=== PATIENT | female | born 1995 | race Caucasian/White ===

== ENCOUNTER 2017-05-20 23:47 | Emergency (ER) | payer OTHER ==
[~2017-05-20] VITALS: Ht 157.5 cm; Wt 115.0 kg
[2017-05-20 23:49] VITALS: BP 133/78
[2017-05-21 00:42] LABS: CONTROL LINE UCG INT CTR LINE PRESENT
[2017-05-21] MEDS ORDERED: BACT800T5 PO (01:06)
[2017-05-21] MEDS ORDERED: LIDOCAINE 1% MDV 20ML VIAL As Ordered ONE (01:12)
[2017-05-21] MEDS ORDERED: BACTRIM 160MG/800MG DS TAB PO ONE (01:15)
[2017-05-21] MEDS ORDERED: PERCOCET 5MG/325MG TAB PO ONE (01:15)
[2017-05-21] MEDS ORDERED: LIDOCAINE 1% MDV 20ML VIAL IM ONE (01:15)
[2017-05-21] MEDS ORDERED: ONDANSETRON 4 MG TAB (S0181) PO ONE (01:15)
[2017-05-21] MEDS ORDERED: cefTRIAXone SOD 1 GM VIAL (J0696) IM ONE (01:15)
[2017-05-21] MEDS ORDERED: TRAM50TA2 PO (01:18)
== END 2017-05-21 01:57 | disposition home or self-care (01) ==
LOC: M ED 05-21 00:58
DX: N10 Acute pyelonephritis (principal); Z87.442 Personal history of urinary calculi
CPT/HCPCS: 81001; 84703; 87088; 87186; 96372; 99283; J0696

== ENCOUNTER 2017-05-22 19:21 | Observation (INO) | payer OTHER ==
[~2017-05-22] VITALS: Ht 157.5 cm; Wt 52.3 kg
[~2017-05-22 19:21] MED LIST: BACT800T5 PO; TRAM50TA2 PO
[2017-05-22] MEDS ORDERED: NS 1,000 ML IV SCH (21:34)
[2017-05-22] MEDS ORDERED: NS 1,000 ML IV ONE ×2 (21:45→22:15)
[2017-05-22 21:58] LABS: BASO # 0.1 10^3/uL (0.0-0.2); BASO % 0.7 % (0.0-1.0); EOS # 0.1 10^3/uL (0.0-0.50); IMMATURE GRANULOCYTE % 0.4 % (0-0); LYMPH # 2.3 10^3/uL (1.5-6.5); LYMPH % 22.5 % (24.0-44.0); MEAN CORPUSCULAR HGB CONC 33.3 g/dl (32.0-36.5); MONO # 0.7 10^3/uL (0.0-0.8); MONO % 6.6 % (0.0-5.0); NEUTROPHILS % 68.8 % (36.0-66.0); PLATELET COUNT, AUTOMATED 257 10^3/uL (150-450); RED CELL DISTRIBUTION WIDTH 12.1 % (11.5-14.5); WHITE BLOOD COUNT 10.2 10^3/uL (4.0-10.0)
[2017-05-22 22:53] LABS: CONTROL LINE HCG INT CTR LINE PRESENT
[2017-05-22 23:16] LABS: BLOOD UREA NITROGEN 9 MG/DL (7-18); GLUCOSE, FASTING 77 MG/DL (70-105)
[2017-05-22 23:17] LABS: ALKALINE PHOSPHATASE 53 U/L (45-117); ALT/SGPT 18 U/L (12-78); AST/SGOT 18 U/L (15-37); BILIRUBIN,DIRECT 0.2 MG/DL (0.0-0.2); BILIRUBIN,TOTAL 0.7 MG/DL (0.2-1.0); CALCIUM LEVEL 8.1 MG/DL (8.5-10.1); CREATININE FOR GFR 0.78 MG/DL (0.55-1.02); GLOMERULAR FILTRATION RATE > 60.0 (>60); TOTAL PROTEIN 6.6 GM/DL (6.4-8.2)
[2017-05-22 23:18] LABS: ALBUMIN 3.7 GM/DL (3.2-5.2); ALBUMIN/GLOBULIN RATIO 1.28 (1.00-1.93)
[2017-05-22 23:19] LABS: ANION GAP 8 MEQ/L (8-16); CARBON DIOXIDE LEVEL 23 MEQ/L (21-32); CHLORIDE LEVEL 106 MEQ/L (98-107); POTASSIUM SERUM 4.1 MEQ/L (3.5-5.1); SODIUM LEVEL 137 MEQ/L (136-145)
[2017-05-22 23:35] LABS: METHADONE URINE NEGATIVE (NEGATIVE)
--- NOTE | 2017-05-22 23:50 | REPUSA ---
CT of the abdomen and pelvis without contrast Clinical statement: left-sided pain. Technique: Multiple axial CT images were obtained from the base of the lungs to the floor of the pelv is utilizing 5 mm axial slices without administration of contrast. Coronal and sagittal reconstructio ns were also obtained. No comparison is available. Findings: Chest: The visualized lung bases are clear. Abdomen: The kidneys are normal in size bilaterally. There is no evidence of hydronephrosis. A 1 mm n onobstructing stone is seen in the left kidney. The liver, spleen, pancreas, gallbladder and adrenal glands are unremarkable. The aorta demonstrates normal caliber and contour. There is no abdominal lym phadenopathy or ascites. Pelvis: The bowel is unremarkable, with no obstructive or inflammatory changes. The appendix is tom l. The urinary bladder is within normal limits. There is no pelvic lymphadenopathy or ascites. The ot her pelvic structures appear unremarkable. Bones: There are no suspicious osseous abnormalities seen. Impression: No evidence of hydronephrosis. Nonobstructing left renal nephrolithiasis. No obstructive or inflammatory bowel changes.
[2017-05-23] MEDS ORDERED: TRAM50TA2 PO (00:50)
[2017-05-23] MEDS ORDERED: BACT800T5 PO (00:50)
[2017-05-23] MEDS: cefTRIAXone SOD 1 GM in D5W 50 ML IV SCH (01:00)
--- NOTE | 2017-05-23 01:36 | REP ---
Clinical: Altered mental status . Comparison: None . Findings: The mediastinum and cardiac silhouette are stable and within normal limits for portable technique. The lung nance are clear without acute consolidation, effusion, or pneumothorax. Skeletal structures are intact. Impression: No acute cardiopulmonary process appreciated. Signed by Mina Zacarias MD 05/23/2017 01:27 A
[2017-05-23] MEDS ORDERED: ONDANSETRON 4MG/2ML VIAL (J2405) IV PRN (01:45)
[2017-05-23] MEDS ORDERED: NS 1,000 ML IV SCH (01:45)
--- NOTE | 2017-05-23 01:50 | HPEPDOC ---
General Date of Admission May 22, 2017 at 19:22 Attending Physician: OTTO ESCOBAR MD Chief Complaint The patient is a 21-year-old female admitted with a reason for visit of Pyelonephritis. Source: Patient Exam Limitations: No limitations History of Present Illness 21-year-old female who recently moved to the area from [place] a few months ago with a past medical history significant for recurrent urinary tract infections and kidney stones presented to the ER with a chief complaint of left-sided flank pain. Of note, the patient was seen in the ER on 05/21/17 for complaints of the same, and she was discharged home on by mouth Bactrim for pyelonephritis. At this time, the patient returned to the ER for complaints of persistent left-sided flank pain with associated nausea and vomiting. The patient also notes subjective fevers at home. She also has complaints of suprapubic tenderness and dysuria. She reports that she has had about 10 episodes of urinary tract infection/pyelonephritis treated in [place] over the last 1 year, which present similarly to this. She states that the symptoms resolve following antibiotic treatment, and notes that her last infection was about 4 months ago. She denies any other acute complaints. In the ER, the patient did have a pelvic exam done by the ER physician (Dr. Rodriguez ) who also sent serology for chlamydia and gonorrhea. At this time, the hospitalist service has been called to admit this patient for pyelonephritis- which has failed outpatient antibiotic therapy. Home Medications Scheduled Trimethoprim/Sulfamethoxazole (Bactrim Ds 800-160 mg) 1 Tab Tab, 1 TAB PO BID, ( Reported) Scheduled PRN Tramadol HCl (Tramadol HCl) 50 Mg Tab, 50 MG PO TID PRN for PAIN, (Reported) Allergies Coded Allergies: No Known Allergies (Unverified , 05/20/17) Past Medical History Medical History As noted above. Surgical History [place] Tooth extraction Family History Significant Family History: No pertinent family hx Social History Drugs: denies Review of Symptoms Other systems 10 point review of systems negative unless otherwise specified in HPI. Physical Examination General Exam: Positive: Alert, Cooperative, No Acute Distress ENT Exam: Positive: Atraumatic, Mucous membr. moist/pink Neck Exam: Negative: JVD Chest Exam: Positive: Clear to auscultation, Normal air movement Heart Exam: Positive: Rate Normal, Normal S1, Normal S2 Abdomen Exam: Positive: Soft, Other (Mild tenderness to deep palpation in the suprapubic area, left flank area.) Extremity Exam: Negative: Tenderness, Swelling Psych Exam: Positive: Oriented x 3 Vital Signs Vital Signs Date Time Temp Pulse Resp B/P (MAP) Pulse Ox O2 Delivery O2 Flow Rate FiO2 05/23/17 00:53 98.0 18 99 Room Air 05/22/17 23:51 72 Laboratory Data Labs 24H Laboratory Tests 2 05/22/17 21:40: Immature Granulocyte % (Auto) 0.4H, White Blood Count 10.2H, Red Blood Count 5.31, Hemoglobin 15.4, Hematocrit 46.2, Mean Corpuscular Volume 87.0, Mean Corpuscular Hemoglobin 29.0, Mean Corpuscular Hemoglobin Concent 33.3, Red Cell Distribution Width 12.1, Platelet Count 257, Neutrophils (%) (Auto) 68.8H, Lymphocytes (%) (Auto) 22.5L, Monocytes (%) (Auto) 6.6H, Eosinophils (%) (Auto) 1.0, Basophils (%) (Auto) 0.7, Neutrophils # (Auto) 7.0, Lymphocytes # (Auto) 2.3, Monocytes # (Auto) 0.7, Eosinophils # (Auto) 0.1, Basophils # (Auto) 0.1, Immature Granulocyte # (Auto) 0.0, Nucleated Red Blood Cells % (auto) 0.0, Urine Appearance CLOUDYH, Urine Color YELLOW, Urine pH 6.0, Urine Specific [place]far[place] 1.012, Urine Protein NEGATIVE, Urine Glucose (UA) NEGATIVE, Urine Ketones TRACEH, Urine Urobilinogen 0.2, Urine Bilirubin NEGATIVE, Urine Leukocyte Esterase 3+H, Urine Blood NEGATIVE, Urine Nitrite NEGATIVE, Urine WBC (Auto) 53H, Urine RBC (Auto) 6H, Urine Hyaline Casts (Auto) 0, Urine Bacteria ( Auto) 1+H, Urine Squamous Epithelial Cells 34, Urine Mucus (Auto) SMALL, Urine Sperm (Auto) , Urine Amphetamines Screen NEGATIVE, Urine Benzodiazepines Screen NEGATIVE, Urine Opiates Screen NEGATIVE, Urine Methadone Screen NEGATIVE, Urine Barbiturates Screen NEGATIVE, Urine Phencyclidine Screen NEGATIVE, Urine Cocaine Metabolite Screen NEGATIVE, Urine Cannabinoids Screen NEGATIVE 05/22/17 22:08: Anion Gap 8, Glomerular Filtration Rate > 60.0, Calcium Level 8.1L, Aspartate Amino Transf (AST/SGOT) 18, Alanine Aminotransferase (ALT/SGPT) 18, Alkaline Phosphatase 53, Total Bilirubin 0.7, Direct Bilirubin 0.2, Total Creatine Kinase 175, Creatine Kinase MB 1.2, Creatine Kinase MB Relative Index 0.68, Troponin I < 0.02, Total Protein 6.6, Albumin 3.7, Albumin/Globulin Ratio 1.28, Lipase 84, Thyroid Stimulating Hormone (TSH) 1.380, Human Chorionic Gonadotropin , Qual NEGATIVE, Salicylates Level < 1.7L, Acetaminophen Level < 2.0L, Ethyl Alcohol Level < 0.003 05/22/17 22:51: Lactic Acid Level 1.1 05/23/17 00:45: CBC/BMP Laboratory Tests 05/22/17 21:40 Red Blood Count 5.31, Mean Corpuscular Volume 87.0, Mean Corpuscular Hemoglobin 29.0, Mean Corpuscular Hemoglobin Concent 33.3, Red Cell Distribution Width 12.1 , Neutrophils (%) (Auto) 68.8 H, Lymphocytes (%) (Auto) 22.5 L, Monocytes (%) ( Auto) 6.6 H, Eosinophils (%) (Auto) 1.0, Basophils (%) (Auto) 0.7, Neutrophils # (Auto) 7.0, Lymphocytes # (Auto) 2.3, Monocytes # (Auto) 0.7, Eosinophils # ( Auto) 0.1, Basophils # (Auto) 0.1 05/22/17 22:08 Microbiology Microbiology 05/22/17 Blood Culture, Received Pending 05/22/17 Blood Culture, Received Pending 05/23/17 Wet Prep - Final, Complete 05/22/17 Urine Culture, Received Pending Plan / VTE VTE Prophylaxis Ordered?: Yes Plan Plan Suprapubic Tenderness and Flank Pain 2/2 UTI/Pyelonephritis CT of the Abd/Pel notable for a 1 mm nonobstructing stone in the left kidney UA notable for +LE, multiple WBC's WBC of 10.2K noted Blood Cultures, Urine Cultures pending Patient has remained afebrile here, with a lactic acid wnl We will empirically start the patient on Rocephin IVF Hydration Antiemetics ordered Wet Prep noted, G-C serology ordered I did discuss the patient needing to establish with a PCP here, and to discuss the possible benefit of antimicrobial prophylaxis given the frequency of her UTI 's. DVT Prophylaxis Lovenox SC The patient will be admitted under the service of Dr. Escobar, who will begin to follow the patient on 05/23/17 at 7 AM. LUCRECIA HARDY MD May 23, 2017 01:50
[2017-05-23 03:00] VITALS: BP 112/61
[2017-05-23] MEDS: ACETAMINOPHEN TAB 650MG DOSE (2X325MG) PO PRN ×2 (03:10→16:18)
[2017-05-23 08:00] VITALS: BP 109/69
[2017-05-23 08:11] LABS: MEAN CORPUSCULAR HEMOGLOBIN 28.9 pg (27.0-33.0); MEAN CORPUSCULAR HGB CONC 32.9 g/dl (32.0-36.5); MEAN CORPUSCULAR VOLUME 87.9 fl (80.0-96.0); RED CELL DISTRIBUTION WIDTH 11.9 % (11.5-14.5); WHITE BLOOD COUNT 6.8 10^3/uL (4.0-10.0)
--- NOTE | 2017-05-23 08:28 | ECGEPIP ---
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
[2017-05-23 08:34] LABS: ANION GAP 6 MEQ/L (8-16); BLOOD UREA NITROGEN 9 MG/DL (7-18); CALCIUM LEVEL 8.2 MG/DL (8.5-10.1); CARBON DIOXIDE LEVEL 25 MEQ/L (21-32); CHLORIDE LEVEL 108 MEQ/L (98-107); CREATININE FOR GFR 0.65 MG/DL (0.55-1.02); GLOMERULAR FILTRATION RATE > 60.0 (>60); GLUCOSE, FASTING 77 MG/DL (70-105); POTASSIUM SERUM 4.6 MEQ/L (3.5-5.1); SODIUM LEVEL 139 MEQ/L (136-145)
[2017-05-23] MEDS ORDERED: ENOXAPARIN 30 MG/0.3 ML SYR (J1650) SC SCH (09:00)
[2017-05-23] MEDS ORDERED: AZITHROMYCIN 250 MG TAB PO ONE (12:30)
[2017-05-23] MEDS ORDERED: SLF 3 ML SYR IV PRN (14:15)
--- NOTE | 2017-05-23 15:07 | CR ---
DATE OF CONSULTATION: 05/23/2017 HISTORY: 21-year-old G0 female several days of left-sided to midline pelvic pain that has been intermittent. She had some low back pain as well and several episodes of nausea and vomiting. She was seen in the emergency room on 05/21/2017 and diagnosed with a urinary tract infection and subsequently, she was treated with Bactrim as an outpatient. She subjectively had fevers. She has pain with urination as well. She re-presented to the emergency room with worsening pain on the date of admission. Chlamydia culture of the cervix did return positive on her most recent emergency room visit. PAST MEDICAL HISTORY: Noncontributory. PAST SURGICAL HISTORY: [place] tooth extraction. ALLERGIES: No known drug allergies. MEDICATIONS: Bactrim DS. FAMILY HISTORY: Noncontributory. PHYSICAL EXAMINATION: Blood pressure 109/69, pulse 69, temperature 98.0, respiratory rate 16. She is in no apparent distress. Head and neck exam normal. Lungs clear. Heart regular rate and rhythm. Abdomen nontender, soft, nondistended. No CVA tenderness. Pelvic exam reveals no cervical motion tenderness. Normal physiologic discharge. No adnexal tenderness. No masses palpable. Extremities nontender. LABS: White blood count 6.8, hemoglobin 30.1 mg/dL. ASSESSMENT: 21-year-old G0 female with suprapubic pain as well as dysuria admitted with possible pyelonephritis. The patient likely has cervicitis related to chlamydia but doubt pelvic inflammatory disease. Chlamydial infection can cause dysuria and suprapubic discomfort without involving the upper genital tract. Would treat with Zithromax 1 gram by mouth times one. Recommend treatment for the patient's as well. The patient should be re-tested in about 6 weeks to insure that the chlamydia is resolved. Agree with plan to treat for possible pyelonephritis as the patient did have a urine culture positive for E coli. Once clinically improved she can be sent home. JOSE R
[2017-05-23 16:00] VITALS: BP 110/65
[2017-05-23] MEDS: PERCOCET 5MG/325MG TAB PO PRN (18:21)
[2017-05-23 21:00] VITALS: BP 109/66
[2017-05-23] MEDS: SLF 3 ML SYR IV SCH (21:06)
[2017-05-24] VITALS: BP 109/74
[2017-05-24] MEDS: PERCOCET 5MG/325MG TAB PO PRN (00:19)
[2017-05-24] MEDS: cefTRIAXone SOD 1 GM in D5W 50 ML IV SCH (00:37)
[2017-05-24] MEDS: SLF 3 ML SYR IV SCH (00:38)
[2017-05-24 07:19] LABS: MEAN CORPUSCULAR HEMOGLOBIN 29.2 pg (27.0-33.0); MEAN CORPUSCULAR HGB CONC 34.1 g/dl (32.0-36.5); MEAN CORPUSCULAR VOLUME 85.6 fl (80.0-96.0); RED CELL DISTRIBUTION WIDTH 12.1 % (11.5-14.5); WHITE BLOOD COUNT 6.9 10^3/uL (4.0-10.0)
[2017-05-24 07:38] LABS: ALBUMIN 3.6 GM/DL (3.2-5.2); ALBUMIN/GLOBULIN RATIO 1.16 (1.00-1.93); ALKALINE PHOSPHATASE 48 U/L (45-117); ALT/SGPT 17 U/L (12-78); ANION GAP 9 MEQ/L (8-16); AST/SGOT 13 U/L (15-37); BILIRUBIN,TOTAL 0.5 MG/DL (0.2-1.0); BLOOD UREA NITROGEN 9 MG/DL (7-18); CALCIUM LEVEL 8.4 MG/DL (8.5-10.1); CARBON DIOXIDE LEVEL 24 MEQ/L (21-32); CHLORIDE LEVEL 105 MEQ/L (98-107); CREATININE FOR GFR 0.71 MG/DL (0.55-1.02); GLOMERULAR FILTRATION RATE > 60.0 (>60); GLUCOSE, FASTING 89 MG/DL (70-105); MAGNESIUM LEVEL 1.8 MG/DL (1.8-2.4); POTASSIUM SERUM 3.6 MEQ/L (3.5-5.1); SODIUM LEVEL 138 MEQ/L (136-145); TOTAL PROTEIN 6.7 GM/DL (6.4-8.2)
[2017-05-24] MEDS ORDERED: CIPR500T3 PO (07:38)
[2017-05-24 08:00] VITALS: BP 108/62
--- NOTE | 2017-05-25 10:53 | DSES ---
DATE OF ADMISSION: 05/22/2017 DATE OF DISCHARGE: 05/24/2017 SUBJECTIVE: The patient tells me she is doing better. Her pain is resolving. She denies any vaginal discharge, fevers, chills, nausea, vomiting, or diarrhea. OBJECTIVE: VITAL SIGNS: Temperature 98.3, pulse 63, respiratory rate 18, blood pressure (BP) 108/62, oxygen saturation 97% on room air. GENERAL: She is a young pleasant female, laying flat in bed, in no acute distress. HEENT: Cranial nerves II-XII are grossly intact. She has moist mucous membranes. No elevation in central venous pressure (CVP). CARDIOVASCULAR EXAM: S1, S2, regular. RESPIRATORY EXAM: Is clear. ABDOMINAL EXAM: Is benign. There is no tenderness. No costovertebral angle (CVA) tenderness. Negative as it was yesterday. EXTREMITIES: No clubbing, cyanosis, or edema. LABORATORY STUDIES: WBC 6.9, hemoglobin 14, platelet count 256. Chemistry panel: Sodium 138, potassium 3.6, chloride 105, bicarbonate 24, BUN 9, creatinine 0.7. Lipase and TSH within normal limits, and hCG is negative. Toxicology was negative. Urine was suggestive of a urinary tract infection. Serology with 53 WBCs, 3+ leukocyte esterase, 1+ bacteria. Serology was positive for Chlamydia trachomatis. Syphilis RPR was negative. HIV screening was negative. Neisseria gonorrhea was negative. Microbiology: Blood cultures were negative for 24 hours. Urine culture is negative during this stay, but on 05/22/2017, prior to admission, she was positive for E. coli, fairly susceptible. Wet prep was unrevealing. IMAGING: The patient had a CT scan of the abdomen and pelvis, which revealed no evidenced of hydronephrosis, nonobstructing left nephrolithiasis, no obstructive or inflammatory bowel changes. She had a chest x-ray that revealed no acute cardiopulmonary process. ASSESSMENT AND PLAN: This is a 21-year-old female who was admitted with E. coli pyelonephritis, found to have chlamydia infection. PROBLEMS: 1. Pyelonephritis. Patient has been empirically on ceftriaxone, and she has improved with therapy with reduction in her costovertebral angle (CVA) and her left inguinal tenderness. At this time, I will transition to ciprofloxacin for her to be a on a 14-day course for pyelonephritis. She has had numerous infections in the past, although she is new to the area and we have no previous documentation. Should she have recurrent infections, could consider outpatient referral to urology. 2. Chlamydia. Patient was found to have chlamydia. She was seen in consultation by Dr. Andrew. [facility] has been notified as has the patient. I have treated the patient with 1 gram of azithromycin. Recommended that she not have intercourse for 1 week and have repeat testing in 6 weeks and that her also should be treated as soon as possible. She should avoid any intercourse with him until he is post treatment for [address] Andrew does not feel the patient had any evidence of pelvic inflammatory disease. It was felt that she likely had cervicitis related to chlamydia as well. The patient at this time is afebrile and is medically stable for discharge home. Her activity and diet are as prior to admission. She is to followup with her primary care provider (PCP) within 7 days. Return to the emergency room (ER) if symptoms worsen.
== END 2017-05-24 08:50 | disposition home or self-care (01) ==
LOC: M ED 19:21 → M ED INP 19:22 → M PED 05-23 02:45
PROVIDERS: ADMIT Internal Medicine; ATTEND Internal Medicine
DX: N10 Acute pyelonephritis (principal); A70 Chlamydia psittaci infections; B96.20 Unspecified Escherichia coli [E. coli] as the cause of diseases classified elsewhere; Z79.899 Other long term (current) drug therapy
CPT/HCPCS: 36415; 71010; 74176; 80048; 80053; 80076; 80307; 81001; 82550; 82553; 83605; 83690; 83735; 84443; 84703; 85025; 85027; 86780; 87040; 87086; 87210; 87389; 87491; 87591; 93005; 93041; 94760; 96361; 96372; 96374; 96375; 96376; 99285; G0480; J0696; J1650; J2405

== ENCOUNTER 2017-09-06 22:19 | Emergency (ER) | payer OTHER ==
[2017-09-06] MEDS: AUGMENTIN 875 MG TAB PO (23:45)
== END 2017-09-07 00:05 | disposition home or self-care (01) ==
LOC: M ED 22:19
DX: S01.81XA Laceration without foreign body of other part of head, initial encounter (principal); W54.0XXA Bitten by dog, initial encounter; Y92.099 Unspecified place in other non-institutional residence as the place of occurrence of the external cause; Y93.89 Activity, other specified
CPT/HCPCS: 12011

== ENCOUNTER → 2017-10-05 | Outpatient (REF) | payer OTHER ==
[2017-10-05 13:44] LABS: INR 1.01; PROTHROMBIN TIME 13.4 SECONDS (12.4-14.5)
[2017-10-05 13:45] LABS: PARTIAL THROMBOPLASTIN TIME 30.7 SECONDS (26.8-37.9)
[2017-10-05 14:01] LABS: IMMUNOGLOBULIN G 1010 MG/DL (681-1648); IMMUNOGLOBULIN M 87.9 MG/DL (40-230)
== END ==
LOC: M LAB REF 13:08
DX: R23.3 Spontaneous ecchymoses (principal)

== ENCOUNTER 2017-10-06 15:32 | Emergency (ER) | payer OTHER | END 2017-10-06 16:59 | disposition home or self-care (01) | LOC: M ED 15:32 | DX: S80.11XA Contusion of right lower leg, initial encounter (principal); V00.318A Other snowboard accident, initial encounter; Y92.838 Other recreation area as the place of occurrence of the external cause | CPT/HCPCS: 73590 ==

== ENCOUNTER → 2017-10-16 | Outpatient (REF) | payer OTHER | LOC: M LAB REF 16:45 | DX: R23.3 Spontaneous ecchymoses (principal) | CPT/HCPCS: 85247 ==

== ENCOUNTER 2017-12-31 18:45 | Emergency (ER) | payer OTHER | END 2017-12-31 22:39 | disposition home or self-care (01) | LOC: M ED 18:45 | DX: N93.9 Abnormal uterine and vaginal bleeding, unspecified (principal); R10.2 Pelvic and perineal pain; Z79.899 Other long term (current) drug therapy | CPT/HCPCS: 81025 ==

== ENCOUNTER 2018-02-26 10:30 | Emergency (ER) | payer OTHER ==
[2018-02-26 11:03] LABS: HEMATOCRIT 38.9 % (36.0-47.0); HEMOGLOBIN 13.3 g/dl (12.0-15.5); MEAN CORPUSCULAR HGB CONC 34.2 g/dl (32.0-36.5); MEAN CORPUSCULAR VOLUME 84.7 fl (80.0-96.0); PLATELET COUNT, AUTOMATED 243 10^3/uL (150-450); RED BLOOD COUNT 4.59 10^6/uL (4.00-5.40); RED CELL DISTRIBUTION WIDTH 12.6 % (11.5-14.5); WHITE BLOOD COUNT 9.7 10^3/uL (4.0-10.0)
[2018-02-26 11:10] LABS: AMORPHOUS SEDIMENT RFX LARGE (NEGATIVE); KETONE, URINE AUTO RFX NEGATIVE (NEGATIVE); LEUKOCYTE ESTERASE UR AUTO RFX TRACE (NEGATIVE); MUCUS, URINE RFX SMALL (NEGATIVE); NITRITE, URINE AUTO RFX NEGATIVE (NEGATIVE); RBC, URINE AUTO RFX 0 /HPF (0-3); SPECIFIC GRAVITY UR AUTO RFX 1.013 (1.002-1.035); SQUAM EPITHELIAL CELL UR AURFX 4 /HPF (0-6); WBC, URINE AUTO RFX 0 /HPF (0-3)
[2018-02-26 11:38] LABS: HCG, SERUM QUANTITATIVE 127646 MIU/ML
== END 2018-02-26 13:31 | disposition home or self-care (01) ==
LOC: M ED 10:30
DX: O26.891 Other specified pregnancy related conditions, first trimester (principal); Z3A.08 8 weeks gestation of pregnancy; O34.81 Maternal care for other abnormalities of pelvic organs, first trimester; N83.201 Unspecified ovarian cyst, right side
CPT/HCPCS: 76801

== ENCOUNTER 2018-04-11 07:16 | Emergency (ER) | payer OTHER ==
[2018-04-11] MEDS: AUGMENTIN 875 MG TAB PO (08:30)
[2018-04-11 09:52] LABS: AMORPHOUS SEDIMENT RFX LARGE (NEGATIVE); KETONE, URINE AUTO RFX NEGATIVE (NEGATIVE); LEUKOCYTE ESTERASE UR AUTO RFX NEGATIVE (NEGATIVE); MUCUS, URINE RFX LARGE (NEGATIVE); NITRITE, URINE AUTO RFX NEGATIVE (NEGATIVE); RBC, URINE AUTO RFX 0 /HPF (0-3); SPECIFIC GRAVITY UR AUTO RFX 1.019 (1.002-1.035); SQUAM EPITHELIAL CELL UR AURFX 4 /HPF (0-6); WBC, URINE AUTO RFX 5 /HPF (0-3)
== END 2018-04-11 09:55 | disposition home or self-care (01) ==
LOC: M ED 07:16
DX: O9A.212 Injury, poisoning and certain other consequences of external causes complicating pregnancy, second trimester (principal); S60.410A Abrasion of right index finger, initial encounter; S60.412A Abrasion of right middle finger, initial encounter; W54.0XXA Bitten by dog, initial encounter; Y92.018 Other place in single-family (private) house as the place of occurrence of the external cause; Z3A.15 15 weeks gestation of pregnancy
CPT/HCPCS: 81001

== ENCOUNTER 2018-05-07 20:06 | Emergency (ER) | payer OTHER ==
[2018-05-07 19:58] LABS: KETONE, URINE AUTO RFX NEGATIVE (NEGATIVE); MUCUS, URINE RFX SMALL (NEGATIVE); NITRITE, URINE AUTO RFX NEGATIVE (NEGATIVE); RBC, URINE AUTO RFX 2 /HPF (0-3); SPECIFIC GRAVITY UR AUTO RFX 1.004 (1.002-1.035); SQUAM EPITHELIAL CELL UR AURFX 5 /HPF (0-6); WBC, URINE AUTO RFX 4 /HPF (0-3)
[2018-05-07 20:15] LABS: LEUKOCYTE ESTERASE UR AUTO RFX 1+ (NEGATIVE)
[2018-05-07] MEDS: NS 1,000 ML IV (20:46)
[2018-05-07 21:32] LABS: BASO % 0.4 % (0.0-1.0); EOS # 0.1 10^3/uL (0.0-0.50); HEMATOCRIT 36.1 % (36.0-47.0); HEMOGLOBIN 12.3 g/dl (12.0-15.5); IMMATURE GRANULOCYTE % 0.3 % (0-3.0); LYMPH # 2.5 10^3/uL (1.5-6.5); LYMPH % 22.9 % (24.0-44.0); MEAN CORPUSCULAR HEMOGLOBIN 28.9 pg (27.0-33.0); MEAN CORPUSCULAR HGB CONC 34.1 g/dl (32.0-36.5); MEAN CORPUSCULAR VOLUME 84.7 fl (80.0-96.0); MONO # 0.8 10^3/uL (0.0-0.8); MONO % 7.3 % (0.0-5.0); NEUTROPHILS # 7.4 10^3/uL (1.8-7.7); NEUTROPHILS % 68.1 % (36.0-66.0); PLATELET COUNT, AUTOMATED 230 10^3/uL (150-450); RED BLOOD COUNT 4.26 10^6/uL (4.00-5.40); RED CELL DISTRIBUTION WIDTH 12.6 % (11.5-14.5); WHITE BLOOD COUNT 10.8 10^3/uL (4.0-10.0)
[2018-05-07 21:46] LABS: ALBUMIN 2.9 GM/DL (3.2-5.2); ALBUMIN/GLOBULIN RATIO 0.81 (1.00-1.93); ALKALINE PHOSPHATASE 45 U/L (45-117); ALT/SGPT 29 U/L (12-78); ANION GAP 7 MEQ/L (8-16); AST/SGOT 17 U/L (7-37); BILIRUBIN,DIRECT < 0.1 MG/DL (0.0-0.2); BILIRUBIN,TOTAL 0.2 MG/DL (0.2-1.0); BLOOD UREA NITROGEN 9 MG/DL (7-18); CARBON DIOXIDE LEVEL 25 MEQ/L (21-32); CHLORIDE LEVEL 108 MEQ/L (98-107); CREATININE FOR GFR 0.48 MG/DL (0.55-1.30); GLOMERULAR FILTRATION RATE > 60.0 (>60); GLUCOSE, FASTING 95 MG/DL (70-100); LIPASE 114 U/L (73-393); POTASSIUM SERUM 3.6 MEQ/L (3.5-5.1); SODIUM LEVEL 140 MEQ/L (136-145); TOTAL PROTEIN 6.5 GM/DL (6.4-8.2)
[2018-05-07 21:47] LABS: LACTIC ACID SEPSIS PROTOCOL 1.1 MMOL/L (0.4-2.0)
[2018-05-08 01:26] LABS: CHLAMYDIA DNA AMPLIFICATION NEGATIVE (NEGATIVE); GC DNA AMPLIFICATION NEGATIVE (NEGATIVE)
== END 2018-05-08 00:34 | disposition home or self-care (01) ==
LOC: M ED 05-08 00:34
DX: R10.9 Unspecified abdominal pain (principal); Z87.440 Personal history of urinary (tract) infections
CPT/HCPCS: 76775

== ENCOUNTER → 2018-07-06 | Outpatient (CLI) | payer OTHER | LOC: M LDO 21:02 | DX: O9A.212 Injury, poisoning and certain other consequences of external causes complicating pregnancy, second trimester (principal); W07.XXXA Fall from chair, initial encounter; Y92.89 Other specified places as the place of occurrence of the external cause; Z3A.27 27 weeks gestation of pregnancy | CPT/HCPCS: 76815 ==

== ENCOUNTER 2018-07-15 18:53 | Outpatient (CLI) | payer OTHER | END 2018-07-15 20:45 | disposition home or self-care (01) | LOC: M LDO 18:53 | DX: O26.893 Other specified pregnancy related conditions, third trimester (principal); R10.10 Upper abdominal pain, unspecified; Z3A.28 28 weeks gestation of pregnancy | CPT/HCPCS: 59025 ==

== ENCOUNTER 2018-08-16 22:34 | Outpatient (CLI) | payer OTHER ==
[~2018-08-16] VITALS: Ht 157.5 cm; Wt 70.6 kg
[~2018-08-16 22:34] MED LIST changes: +AUGM875T28 PO; +CIPR500T3 PO; +IBUP-1022 PO; +LEVO750T13 PO; +NITR100C2; +PREN1CHW6 PO; +PREN27TA3 PO; +PROAAER10 INH; +REGL10TA6 PO; +TESS100C PO; +ZITHTAB PO; +ZOFR4TAB14 PO
[2018-08-16 22:48] VITALS: BP 147/84
[2018-08-16] MEDS ORDERED: COLA100C5 PO (22:52)
--- NOTE | 2018-08-17 00:15 | IPNPDOC ---
Text Note Date of Service The patient was seen on 08/17/18. NOTE Triage Note Annalisa is a 22yo with SIUP at approx 33wk who presents tonight for ctx. Notably, she has idiopathic polyhydramnios and was treated symptomatically 5 days ago with amniocentesis. She was seen at [facility] earlier in the day and noted to have WM 28cm and plan is for another amniocentesis at her next visit there. She was treated for possible PTL at [facility] previously also, she notes she was 1cm dilated, and she received a course of betamethasone. She was discharged when PTL did not progress. She notes ctx for the last 2 hours have been somewhat regular and occasional ctx are painful. No LOF. No vaginal bleeding. She feels excellent movement. first bp mild range and normotensive on repeat, afebrile General: WDWN, lying comfortably in bed Abdomen: gravid, non-tender to palpation Extremities: no edema of BLE SCE: 1/thick/high FHRT: reactive, bl 120, +accels, -decels, mod wu Knowles: irregular ctx Assessment: Annalisa is a 22yo with SIUP at approx 33wk with irregular ctx in the setting of known likely idiopathic polyhydramnios that has recurred after therapeutic amniocentesis 5 days ago. No evidence of PTL based on un changed cervical exam from previous, irreg ctx. Reassuring status. Vitals wnl. Plan: -safe for discharge -recommend bath or shower to relax -prn benadryl for sleep -encouraged increased hydration -return precautions discussed -keep scheduled appts with [facility] Dr. Mary Carroll MD VS,Dagmar, I+O VS, Dagmar, I+O Vital Signs Date Time Temp Pulse Resp B/P (MAP) Pulse Ox O2 Delivery O2 Flow Rate FiO2 08/16/18 22:48 98.5 85 18 147/84 (105) Mary Carroll MD Aug 17, 2018 00:15
== END 2018-08-17 00:05 | disposition home or self-care (01) ==
LOC: M LDO 22:34
PROVIDERS: ATTEND Obstetrics & Gynecology
DX: O47.9 False labor, unspecified (principal); O40.3XX0 Polyhydramnios, third trimester, not applicable or unspecified; Z3A.33 33 weeks gestation of pregnancy
CPT/HCPCS: 59025; G0378; G0463

== ENCOUNTER 2018-09-07 16:40 | Inpatient (IN) | payer OTHER ==
[~2018-09-07] VITALS: Ht 157.5 cm; Wt 75.1 kg
[~2018-09-07 16:40] MED LIST changes: +COLA100C5 PO
[2018-09-07 17:03] VITALS: BP 122/82
[2018-09-07] MEDS ORDERED: BENA25CA4 PO (17:15)
[2018-09-07] MEDS ORDERED: LR 1,000 ML IV SCH (19:13)
[2018-09-07] MEDS ORDERED: LACTATED RINGER'S 1000 ML IV STA (19:13)
[2018-09-07] MEDS ORDERED: TERBUTALINE SULFATE 1 MG/ML VIAL (J3105) SC ONE (19:15)
--- NOTE | 2018-09-07 19:46 | HPEPDOC ---
Obstetrical History & Physical General Date of Admission History of Present Illness 22 yo at 36+1 weeks gestation by LMP of [id number] c/w 7+5 week US on 19Feb2018 presents to L&D with the complaint of regular, painful contractions. She was recently admitted at [facility] in [place] for three days for contractions and was discharged yesterday. She was also previously admitted there and is BTMZ complete. She has an apparent IOL scheduled there on 19Sep2018 due to idiopathic polyhydramnios. She had an amnioreduction at [facility] on 11Aug2018. She reports she called them today and she was instructed to come here. She denies any vaginal bleeding or leakage of fluid. She endorses excellent movement. 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) Past Medical History Medical History Hx of UTIs and kidney stones Surgical History: [place] teeth Family History Significant Family History: No pertinent family hx Social History Marital Status: Family situation: Spouse/partner home Psychosocial History: No pertinent psych hx * Smoker: non-smoker Alcohol: Denies Drugs: denies Imunizations Tdap status: needs Influenza Status: current Allergies Coded Allergies: No Known Allergies (Unverified , 09/07/18) Medications Scheduled Diphenhydramine HCl (Benadryl Allergy) 25 Mg Cap, 25 MG PO QPM Multivitamins/ (Prenata 29-1 mg) 1 Chw Chw, 1 CHW PO DAILY Physical Examination Physical Examination GENERAL: Alert and oriented times three. ABDOMEN: Gravid and non-tender to touch. FETUS: Is vertex (VTX) by sterile vaginal examination (SVE) EXTREMITIES: No edema. Vital Signs/I&O Vital Signs Date Time Temp Pulse Resp B/P (MAP) Pulse Ox O2 Delivery O2 Flow Rate FiO2 09/07/18 17:03 98.8 82 16 122/82 (95) Laboratory Data Urine Culture: No Growth Pertinent Laboratoy Data Blood Type: A+ RBC Antibody Screen: Negative HIV: Negative Hepatitis B: Negative Hepatitis C: Unknown Rapid Plasma Reagin: Nonreactive Rubella: Immune Varicella: Immune Chlamydia/Gonorrhea: Negative Group B Streptococcus: Negative Cystic Fibrosis: Negative Anatomy Ultrasound Placenta Location: Posterior Normal Anatomy: Yes (Dilated renal pelvis. Otherwise normal) Placenta Previa: No Steroid Therapy Steroid Therapy: Yes (Done in [place] in early August) Vaginal Examination Dilation: 4 cm Effacement: 50% Station: -3 Cervical Consistency: Medium Cervical Position: Posterior Presentation: Cephalic presentation Position: Vertex (occiput) Assessment Heart Rate (FHR): 125 Variability: Moderate Accelerations: Positive Decelerations: None Tocometer Contractions: Yes Frequency: regular Duration: less than 60 seconds Strength: palpated as moderate Assessment/Plan Assessment 22 yo at 36+1 weeks presented with regular, painful contractions. Just discharged from [facility] yesterday, but she reports contractions have been worsening. She is 4cm dilated, though she reports she was 4cm when she was discharged from [facility] yesterday. However, she is very uncomfortable. Plan Admit for expectant management of contractions and concern for labor. Cervix unchanged on exam >1hr apart, though Annalisa is very uncomfortable. Will consider dose of terbutaline for symptomatic relief, NOT for tocolysis. She is BTMZ complete. Received GBS results from [facility]. She is GBS negative. Apply IV fluids. NPO. Should she progress in labor she will be a candidate for an epidural. All questions answered. DO KELSIE Suarez CHRISTOPHER J. DO Sep 07, 2018 19:46
[2018-09-07] MEDS ORDERED: diphenhydrAMINE INJ 50MG/ML VIAL (J1200) IV ONE (20:15)
[2018-09-07 20:45] VITALS: BP 130/76
[2018-09-07 20:46] LABS: BASO % 0.4 % (0.0-1.0); EOS % 0.2 % (0.0-3.0); HEMATOCRIT 35.8 % (36.0-47.0); HEMOGLOBIN 12.1 g/dl (12.0-15.5); LYMPH # 2.4 10^3/uL (1.5-6.5); LYMPH % 21.8 % (24.0-44.0); MEAN CORPUSCULAR HEMOGLOBIN 27.2 pg (27.0-33.0); MEAN CORPUSCULAR HGB CONC 33.8 g/dl (32.0-36.5); MEAN CORPUSCULAR VOLUME 80.4 fl (80.0-96.0); MONO # 0.8 10^3/uL (0.0-0.8); MONO % 7.6 % (0.0-5.0); NEUTROPHILS # 7.6 10^3/uL (1.8-7.7); NEUTROPHILS % 69.6 % (36.0-66.0); PLATELET COUNT, AUTOMATED 214 10^3/uL (150-450); RED BLOOD COUNT 4.45 10^6/uL (4.00-5.40)
[2018-09-08 00:07] VITALS: BP 117/79
[2018-09-08 06:26] VITALS: BP 118/76
[2018-09-08 07:11] VITALS: BP 129/83
--- NOTE | 2018-09-08 08:00 | IPNPDOC ---
Text Note Date of Service The patient was seen on 09/08/18. NOTE Presented to room. Cervix: unchanged at 4/50/-3. FHR has remained Cat I. Contractions have decreased in frequency and intensity. Cervix has not changed for ~12 hours. Ms. Alvarenga reports feeling better this morning, though contractions are still present. She is BTMZ complete. She lives 10 [address] from the hospital. Will discharge home. She has a follow up appointment scheduled at [facility] on Sunday. She has an IOL scheduled there for 19Sep2018, however she may want to deliver at this facility. I recommended she make a follow up appointment at [facility] this week. She is to return to care sooner for bleeding, leakage of fluid, decreased movement, or w orsening contraction pain. All questions answered. Anntete Iglesias DO VS,Dagmar, I+O VS, Dagmar, I+O Laboratory Tests 09/07/18 20:38 Red Blood Count 4.45, Mean Corpuscular Volume 80.4, Mean Corpuscular Hemoglobin 27.2, Mean Corpuscular Hemoglobin Concent 33.8, Red Cell Distribution Width 13.7, Neutrophils (%) (Auto) 69.6 H, Lymphocytes (%) (Auto) 21.8 L, Monocytes (%) (Auto) 7.6 H, Eosinophils (%) (Auto) 0.2, Basophils (%) (Auto) 0.4, Neutrop hils # (Auto) 7.6, Lymphocytes # (Auto) 2.4, Monocytes # (Auto) 0.8, Eosinophils # (Auto) 0.0, Basophils # (Auto) 0.0 Vital Signs Date Time Temp Pulse Resp B/P (MAP) Pulse Ox O2 Delivery O2 Flow Rate FiO2 09/08/18 06:26 98.0 77 18 118/76 (90) ANNETTE IGLESIAS DO Sep 08, 2018 08:00
--- NOTE | 2018-09-08 08:06 | DS.PDOC ---
Discharge Summary General Date of Admission Sep 07, 2018 at 19:45 Date of Discharge Sep 08, 2018 Discharge Summary HOSPITAL COURSE: Ms. Alvarenga was admitted to [facility] on 07Sep2018 for concern of labor. She had recently been discharged from [facility] and was 4cm dilated. She was monitored overnight and her contractions decreased in frequency and intensity. In addition, her cervix did not change for ~12 hours. FHR remained Cat I throughout her admission. On her day of discharge she met all appropriate discharge criteria. She was ambulating, voiding, tolerating a regular diet, and had minimal pain. DISCHARGE MEDICATIONS: Please see below. ALLERGIES: Please see below. PHYSICAL EXAMINATION ON DISCHARGE: VITAL SIGNS: Please see below. GENERAL: AAOX3, pleasant and conversant, NAD ABDOMINAL EXAMINATION: Gravid uterus, no fundal tenderness EXTREMITIES: No edema PSYCHIATRIC EXAMINATION: Affect appropriate LABORATORY DATA: Please see below. ACTIVITY: Pelvic rest DIET: Regular DISCHARGE PLAN: Discharge home on 08Sep2018 DISPOSITION: discharge home. DISCHARGE INSTRUCTIONS: 1. pelvic rest. ITEMS TO FOLLOWUP ON ON OUTPATIENT: 1. Follow up appointment at [facility] on Sunday. Schedule follow up appointment with Elana WEBBER this week. DISCHARGE CONDITION: Stable. TIME SPENT ON DISCHARGE: Greater than 20 minutes. Annette Iglesias, Vital Signs/I&Os Vital Signs Date Time Temp Pulse Resp B/P (MAP) Pulse Ox O2 Delivery O2 Flow Rate FiO2 09/08/18 06:26 98.0 77 18 118/76 (90) Laboratory Data Labs 24H Laboratory Tests 2 09/07/18 20:26: Serology Scanned Report Hepatitis B Testing 09/07/18 20:38: Immature Granulocyte % (Auto) 0.4, White Blood Count 11.0H, Red Blood Count 4.45, Hemoglobin 12.1, Hematocrit 35.8L, Mean Corpuscular Volume 80.4, Mean C orpuscular Hemoglobin 27.2, Mean Corpuscular Hemoglobin Concent 33.8, Red Cell Distribution Width 13.7, Platelet Count 214, Neutrophils (%) (Auto) 69.6H, Lymphocytes (%) (Auto) 21.8L, Monocytes (%) (Auto) 7.6H, Eosinophils (%) (Auto) 0.2, Basophils (%) (Auto) 0.4, Neutrophils # (Auto) 7.6, Lymphocytes # (Auto) 2.4, Monocytes # (Auto) 0.8, Eosinophils # (Auto) 0.0, Basophils # (Auto) 0.0, Nucleated Red Blood Cells % (auto) 0.0 CBC/BMP Laboratory Tests 09/07/18 20:38 Red Blood Count 4.45, Mean Corpuscular Volume 80.4, Mean Corpuscular Hemoglobin 27.2, Mean Corpuscular Hemoglobin Concent 33.8, Red Cell Distribution Width 13.7, Neutrophils (%) (Auto) 69.6 H, Lymphocytes (%) (Auto) 21.8 L, Monocytes (%) (Auto) 7.6 H, Eosinophils (%) (Auto) 0.2, Basophils (%) (Auto) 0.4, Lisset trophils # (Auto) 7.6, Lymphocytes # (Auto) 2.4, Monocytes # (Auto) 0.8, Eosinophils # (Auto) 0.0, Basophils # (Auto) 0.0 Discharge Medications Scheduled Diphenhydramine HCl (Benadryl Allergy) 25 Mg Cap, 25 MG PO QPM, (Reported) Multivitamins/ (Prenata 29-1 mg) 1 Chw Chw, 1 CHW PO DAILY, (Reported) Allergies Coded Allergies: No Known Allergies (Unverified , 09/07/18) ANNETTE IGLESIAS DO Sep 08, 2018 08:06
== END 2018-09-08 08:19 | disposition home or self-care (01) | DRG 833 ==
LOC: M LDO 16:40 → M LDI 19:45
PROVIDERS: ADMIT Obstetrics & Gynecology; ATTEND Obstetrics & Gynecology
DX: O60.03 Preterm labor without delivery, third trimester (principal); Z3A.36 36 weeks gestation of pregnancy; O40.3XX0 Polyhydramnios, third trimester, not applicable or unspecified